=== PATIENT | female | born 1990 | race Caucasian/White ===

== ENCOUNTER 2016-12-09 09:59 | Emergency (ER) | payer OTHER ==
[~2016-12-09] VITALS: Ht 152.4 cm; Wt 77.7 kg
[~2016-12-09 09:59] MED LIST: DICY1TAB26 PO
[2016-12-09 10:00] VITALS: BP 130/68; PULSE 74; RESP 20; TEMP 98; O2SAT 99
--- NOTE | 2016-12-09 10:23 | PD ---
HPI Chief Complaint: GI Complaint Time Seen by Provider: 10:14 Travel History International Travel<30 days: No Contact w/Intl Traveler<30days: No Traveled to known affect area: No History of Present Illness HPI This is a 26-year-old female who presents to the emergency department with nausea and vomiting in the setting of early . Patient think she could be up to 15 weeks by dates. She did have an ultrasound at [facility] which demonstrated an intrauterine . She says that for the past 2 week she's been having trouble keeping anything down and she's been nauseous all day long. This morning is the first time she's been vomiting and she's vomited 6 times and she hasn't been able to eat or drink anything, constant, severe. She says she's lost 10 pounds since she became . She has some abdominal cramping but denies any severe pain. She is also constipated. PFSH Past Medical History Chest Pain: Yes Diminished Hearing: No Musculoskeletal: Yes (CHRONIC BACK PAIN) Immunizations Current: Yes ?: LMP: SEPTEMBER 21 2016 : 2 Para: 2 Ovarian Cysts: Yes Past Surgical History Abdominal Surgery: Yes Section: Yes (X2) Oral Surgery: Yes (WISDOM TEETH REMOVED) Social History Alcohol Use: Yes (RARE) Tobacco Use: No (QUIT 10/07/15) Substance Use: Yes (OCC MARIJ) Allergies-Medications (Allergen,Severity, Reaction): Coded Allergies: No Known Allergies (Verified , 10/21/15) Reported Meds & Prescriptions Reported Meds & Active Scripts Active No Active Prescriptions or Reported Medications Review of Systems Except as stated in HPI: all other systems reviewed are Neg Physical Exam Narrative GENERAL:Well appearing, no acute distress SKIN: Focused skin assessment warm and dry. HEAD: Atraumatic. Normocephalic. EYES: Pupils equal and round. No injection or drainage. ENT: Dry mucous membranes. NECK: Trachea midline. CARDIOVASCULAR: Regular rate and rhythm. No murmur appreciated. RESPIRATORY: Clear to auscultation. Breath sounds equal bilaterally. GASTROINTESTINAL: Abdomen soft, non-tender, nondistended. MUSCULOSKELETAL: No obvious deformities. NEUROLOGICAL: Awake and alert. No obvious cranial nerve deficits. Moving all extremities. PSYCHIATRIC: Appropriate mood and affect; insight and judgment normal. Data Data Last Documented VS Vital Signs Date Time Temp Pulse Resp B/P (MAP) Pulse Ox O2 Delivery O2 Flow Rate FiO2 12/09/16 10:00 98.0 74 20 130/68 (88) 99 Room Air Orders Orders Basic Metabolic Panel (Bmp) (12/09/16 10:20) Urinalysis - C+S If Indicated (12/09/16 10:20) Sodium Chlor 0.9% 1000 Ml Inj (Ns 1000 M (12/09/16 10:30) Ondansetron Inj (Zofran Inj) (12/09/16 10:30) Labs Laboratory Tests Test 12/09/16 10:30 Blood Urea Nitrogen 4 MG/DL Creatinine 0.62 MG/DL Random Glucose 100 MG/DL Calcium Level 8.8 MG/DL Sodium Level 137 MEQ/L Potassium Level 3.7 MEQ/L Chloride Level 106 MEQ/L Carbon Dioxide Level 23.0 MEQ/L Anion Gap 8 MEQ/L Estimat Glomerular Filtration Rate 115 ML/MIN MDM Medical Decision Making Medical Screen Exam Complete: Yes Emergency Medical Condition: Yes Interpretation(s) Afebrile, no tachycardia, normotensive Electrolytes are reassuring Differential Diagnosis Hyperemesis gravidarum, electrolyte abnormality, dehydration Narrative Course This is a 26-year-old female who presents to the emergency department with nausea and vomiting in the first trimester. She appears dry on exam. She is given a liter of IV fluid and IV Zofran. Electrolytes are reassuring. Patient feels somewhat better would like to go home. She was advised to return to the emergency department if her symptoms don't improve. She'll be discharged on Diclegis and Zofran as needed. Diagnosis Primary Impression: Hyperemesis gravidarum Patient Instructions: General Instructions Additional Instructions: If you develop severe or worsening abdominal pain, fever>100.4, persistent vomiting or inability to eat or drink return to the emergency department immediately. Follow-up with your senior marketing manager as an outpatient. Med/Other Pt SpecificInfo: Prescription(s) given Scripts Doxylamine-Pyridoxine (Diclegis) 10-10 Mg Tab 1 TAB PO DIRECTED, #20 Take 2 tablets at bed time on day 1 and day 2. If your symptoms are persisting take one tablet in the morning and 2 tablets at bedtime on day 3. If your symptoms are persistent increase to 1 tablet in the morning, 1 tablet in the afternoon and 2 tablets at bed time on day 4. Prov: Paulina García MD 12/09/16 Disposition: 01 DISCHARGE HOME Condition: Stable Paulina García MD Dec 09, 2016 10:23
[2016-12-09] MEDS ORDERED: SODIUM CHLOR 0.9% 1000 ML INJ 1,000 ML IV ONE (10:30)
[2016-12-09] MEDS ORDERED: ONDANSETRON HCL 4 MG/2 ML VIAL IV PUSH ONE (10:30)
[2016-12-09 11:14] LABS: POTASSIUM 3.7 MEQ/L (3.5-5.1)
[2016-12-09] MEDS ORDERED: DOXY10TA PO (11:31)
[2016-12-09] MEDS ORDERED: ZOFR4TAB3 SL (11:32)
== END 2016-12-09 12:08 | disposition home or self-care (01) ==
LOC: NEPD 09:59
DX: O21.0 Mild hyperemesis gravidarum (principal); R10.9 Unspecified abdominal pain
CPT/HCPCS: 80048; 96361; 96374; 99284; J2405; J7030

== ENCOUNTER 2017-07-15 08:20 | Inpatient (IN) | payer MEDICAID ==
[~2017-07-15] VITALS: Ht 152.4 cm; Wt 98.0 kg
[~2017-07-15 08:20] MED LIST changes: -DICY1TAB26 PO; +DOXY10TA PO; +ZOFR4TAB3 SL
[2017-07-15 09:37] LABS: AUTOMATED NEUTROPHIL # 6.8 TH/MM3 (1.8-7.7); BASOPHIL % 0.1 % (0.0-2.0); EOSINOPHIL # 0.1 TH/MM3 (0-0.4); EOSINOPHIL % 0.5 % (0.0-4.0); HEMATOCRIT 32.6 % (35.0-46.0); HEMOGLOBIN 11.3 GM/DL (11.6-15.3); LYMPH % 22.3 % (9.0-44.0); LYMPHOCYTE # 2.1 TH/MM3 (1.0-4.8); MEAN CELL VOLUME 92.8 FL (80.0-100.0); MEAN CORPUSCULAR HEMOGLOBIN 32.3 PG (27.0-34.0); MEAN CORPUSCULAR HGB CONC 34.8 % (32.0-36.0); MEAN PLATELET VOLUME 8.8 FL (7.0-11.0); MONOCYTE # 0.5 TH/MM3 (0-0.9); NEUT % 72.1 % (16.0-70.0); PLATELET COUNT 223 TH/MM3 (150-450); RED BLOOD COUNT 3.51 MIL/MM3 (4.00-5.30); RED CELL DISTRIBUTION WIDTH 13.8 % (11.6-17.2); WHITE BLOOD COUNT 9.4 TH/MM3 (4.0-11.0)
[2017-07-15] MEDS ORDERED: LACTATED RINGER'S 1000 ML INJ 1,000 ML IV ONE ×2 (09:38→12:00)
[2017-07-15 09:43] LABS: BACTERIA, URINE RARE /hpf; BILIRUBIN, URINE NEG (NEG); BLOOD, URINE NEG (NEG); GLUCOSE,URINE NEG (NEG); HYALINE CAST, URINE 2 /lpf (RARE); KETONE, URINE NEG (NEG); MUCUS URINE FEW /lpf (OCC); NITRITE,URINE NEG (NEG); PH, URINE 6.5 (5.0-8.5); SQUAMOUS EPITHELIAL CELL URINE 1 /hpf (0-5); URINE COLOR YELLOW (YELLW/STRAW); URINE LEUKOCYTE ESTERASE NEG (NEG)
--- NOTE | 2017-07-15 09:54 | HHI.HP ---
HPI Travel History International Travel<30 Days: No Contact w/Intl Traveler<30Days: No Known Affected Area: No History of Present Illness HPI This is a 26-year-old 002 at 39/1 weeks present to the OB floor for scheduled repeat . She is a patient of Melonie Hampton. She has had 2 prior C-sections. She reports contractions every 10 minutes, irregular. Endorses good movement. She denies leakage of fluid, vaginal bleeding, vaginal discharge, fevers, chest pain and shortness of breath. No other complaints. History Past Medical History Medical History: Denies Significant Hx Obstetric History Obstetric History 2 prior C-sections Past Surgical History Narrative Surgical Family History Family History: Negative Social History Alcohol Use: No Tobacco Use: No Substance Abuse: No Allergies-Medications (Allergen,Severity, Reaction): Coded Allergies: No Known Allergies (Verified Allergy, Unknown, 07/15/17) Home Meds Active Scripts Ondansetron Odt (Zofran Odt) 4 Mg Tab, 4 MG SL Q6HR Y for Nausea/Vomiting, #15 TAB 0 Refills Prov:Paulina García MD 12/09/16 Doxylamine-Pyridoxine (Diclegis) 10-10 Mg Tab, 1 TAB PO DIRECTED, #20 Take 2 tablets at bed time on day 1 and day 2. If your symptoms are persisting take one tablet in the morning and 2 tablets at bedtime on day 3. If your symptoms are persistent increase to 1 tablet in the morning, 1 tablet in the afternoon and 2 tablets at bed time on day 4. Prov:Paulina García MD 12/09/16 Review of Systems Except as stated in HPI: all other systems reviewed are Neg Physical Exam Narrative GENERAL: Well-nourished, well-developed patient. SKIN: Warm and dry. HEAD: Normocephalic and atraumatic. EYES: No scleral icterus. No injection or drainage. ENT: No nasal drainage noted. Mucous membranes pink. Airway patent. NECK: Supple, trachea midline. No JVD. CARDIOVASCULAR: Regular rate and rhythm without murmurs, gallops, or rubs. RESPIRATORY: Breath sounds equal bilaterally. No accessory muscle use. ABDOMEN/GI: Abdomen soft, non-tender, bowel sounds present, no rebound, no guarding FHT's: Category: 1 Baseline: 130 Reactive: yes Variability: moderate Decels: none EXTREMITIES: No cyanosis or edema. BACK: Nontender without obvious deformity. NEUROLOGICAL: Awake and alert. Motor and sensory grossly within normal limits. Five out of 5 muscle strength in all muscle groups. Normal speech. Caprini VTE Risk Assessment Caprini VTE Risk Assessment: No/Low Risk (score <= 1) Caprini Risk Assessment Model Point Value = 1 Point Value = 2 Point Value = 3 Point Value = 5 Age 41-60 Minor surgery BMI > 25 kg/m2 Swollen legs Varicose veins or History of unexplained or recurrent spontaneous Oral contraceptives or hormone replacement Sepsis (< 1 month) Serious lung disease, including pneumonia (< 1 month) Abnormal pulmonary function Acute myocardial infarction Congestive heart failure (< 1 month) History of inflammatory bowel disease Medical patient at bed rest Age 61-74 Arthroscopic surgery Major open surgery (> 45 min) Laparoscopic surgery (> 45 min) Malignancy Confined to bed (> 72 hours) Immobilizing plaster cast Central venous access Age >= 75 History of VTE Family history of VTE Factor V Leiden Prothrombin [id number] Lupus anticoagulant Anticardiolipin antibodies Elevated serum homocysteine Heparin-induced thrombocytopenia Other congenital or acquired thrombophilia Stroke (< 1 month) Elective arthroplasty Hip, pelvis, or leg fracture Acute spinal cord injury (< 1 month) Prophylaxis Regimen Total Risk Factor Score Risk Level Prophylaxis Regimen 0-1 Low Early ambulation 2 Moderate Order ONE of the following: *Sequential Compression Device (SCD) *Heparin 5000 units SQ BID 3-4 Higher Order ONE of the following medications: *Heparin 5000 units SQ TID *Enoxaparin/Lovenox 40 mg SQ daily (WT < 150 kg, CrCl > 30 mL/min) *Enoxaparin/Lovenox 30 mg SQ daily (WT < 150 kg, CrCl > 10-29 mL/min) *Enoxaparin/Lovenox 30 mg SQ BID (WT < 150 kg, CrCl > 30 mL/min) AND/OR *Sequential Compression Device (SCD) 5 or more Highest Order ONE of the following medications: *Heparin 5000 units SQ TID (Preferred with Epidurals) *Enoxaparin/Lovenox 40 mg SQ daily (WT < 150 kg, CrCl > 30 mL/min) *Enoxaparin/Lovenox 30 mg SQ daily (WT < 150 kg, CrCl > 10-29 mL/min) *Enoxaparin/Lovenox 30 mg SQ BID (WT < 150 kg, CrCl > 30 mL/min) AND *Sequential Compression Device (SCD) Data Data Vital Signs Reviewed: Yes Orders Orders Type And Screen (07/15/17 09:12) Complete Blood Count With Diff (07/15/17 09:12) Urinalysis - C+S If Indicated (07/15/17 09:12) Drug Screen, Random Urine (07/15/17 09:12) Specimen To Be Collected PRN (07/15/17 09:12) Specimen To Be Collected PRN (07/15/17 09:12) Admit To Inpatient (07/15/17 ) Code Status (07/15/17 09:38) Vital Signs (Adult) .ON ADMISSION (07/15/17 09:38) Activity Oob Ad Marian (07/15/17 09:38) Heart (07/15/17 09:38) Urinary Catheter Management MIGUEL.Q8H (07/15/17 09:38) ^ Preps (07/15/17 09:38) Scd / Farzad / Foot Pump MIGUEL.QSHIFT (07/15/17 09:38) ^ Ultrasound For Locatio (07/15/17 09:38) Diet Npo (07/15/17 Breakfast) Lactated Ringer's 1000 Ml Inj (Lr 1000 M (07/15/17 09:38) Lactated Ringer's 1000 Ml Inj (Lr 1000 M (07/15/17 10:08) Citric Acid-Sodium Citrate Liq (Bicitra (07/15/17 11:15) Complete Blood Count With Diff (07/15/17 09:38) Urinalysis - C+S If Indicated (07/15/17 09:38) Drug Screen, Random Urine (07/15/17 09:38) Inpatient Certification (07/15/17 ) Specimen To Be Collected PRN (07/15/17 09:38) Specimen To Be Collected PRN (07/15/17 09:38) Cefazolin 2 Gm Premix (Ancef 2 Gm Premix (07/15/17 10:45) Cefazolin Inj (Ancef Inj) (07/15/17 10:45) Group B Strep: Negative Labs Laboratory Tests Test 07/15/17 08:35 07/15/17 08:45 Urine Color YELLOW Urine Turbidity CLEAR Urine pH 6.5 Urine Specific [place] 1.020 Urine Protein TRACE Urine Glucose (UA) NEG Urine Ketones NEG Urine Occult Blood NEG Urine Nitrite NEG Urine Bilirubin NEG Urine Urobilinogen 2.0 Urine Leukocyte Esterase NEG Urine RBC 1 Urine WBC 1 Urine Squamous Epithelial Cells 1 Urine Bacteria RARE Urine Hyaline Casts 2 Urine Mucus FEW Microscopic Urinalysis Comment CULT NOT INDICATED White Blood Count 9.4 Red Blood Count 3.51 Hemoglobin 11.3 Hematocrit 32.6 Mean Corpuscular Volume 92.8 Mean Corpuscular Hemoglobin 32.3 Mean Corpuscular Hemoglobin Concent 34.8 Red Cell Distribution Width 13.8 Platelet Count 223 Mean Platelet Volume 8.8 Neutrophils (%) (Auto) 72.1 Lymphocytes (%) (Auto) 22.3 Monocytes (%) (Auto) 5.0 Eosinophils (%) (Auto) 0.5 Basophils (%) (Auto) 0.1 Neutrophils # (Auto) 6.8 Lymphocytes # (Auto) 2.1 Monocytes # (Auto) 0.5 Eosinophils # (Auto) 0.1 Basophils # (Auto) 0.0 CBC Comment DIFF FINAL Differential Comment Assessment/Plan Assessment and Plan 26-year-old female at 39/1 weeks resents for a scheduled repeat C- section. -Intrauterine , category 1, reassuring -GBS negative -Admit to L & D sdw Jesica Ibrahim MD R1 Jul 15, 2017 09:54
[2017-07-15] MEDS ORDERED: LACTATED RINGER'S 1000 ML INJ 1,000 ML IV SCH (10:08)
[2017-07-15] MEDS ORDERED: MORPHINE SULFATE PF 5 MG/10 ML VIAL ONE (10:43)
[2017-07-15] MEDS ORDERED: ceFAZolin 2 GM PREMIX 50 ML IV SCH (10:45)
[2017-07-15] MEDS ORDERED: CITRIC ACID-SODIUM CITRATE LIQ 30 ML UDC PO SCH (11:15)
[2017-07-15] MEDS ORDERED: FUROSEMIDE 40 MG/4 ML VIAL ONE (11:42)
[2017-07-15] MEDS ORDERED: OXYTOCIN 10 UNIT/ML AMP IV ONE (12:00)
[2017-07-15] MEDS ORDERED: PROPOFOL 200 MG/20 ML AMP IV ONE (12:00)
[2017-07-15] MEDS ORDERED: DEXAMETHASONE SOD PHOS 4 MG/ML VIAL IV ONE (12:00)
[2017-07-15] MEDS ORDERED: ePHEDrine/NS 25 MG/5 ML SYRINGE IV ONE (12:00)
[2017-07-15] MEDS ORDERED: ceFAZolin INJ 1,000 MG VIAL IV ONE (12:00)
[2017-07-15] MEDS ORDERED: ONDANSETRON HCL 4 MG/2 ML VIAL IV ONE (12:00)
[2017-07-15] MEDS ORDERED: KETOROLAC TROMETHAMINE 30 MG/ML (IVP) VIAL IV PUSH ONE (12:00)
--- NOTE | 2017-07-15 12:12 | PD.OB.DELI ---
Procedure Note Section Procedure Pre Op Diagnosis: (1) History of delivery affecting (2) 39 weeks gestation of Post Op Diagnosis: (1) History of delivery affecting (2) 39 weeks gestation of Performed by Demond Gonzalez Procedure: Repeat Low Transverse Sec Indication for delivery: Desired elective repeat Informed consent obtained: For procedure Confirmed correct: Time-out taken Anesthesia: Spinal Medication prior to procedure: As documented in eMAR Monitoring during procedure: Blood pressure monitoring, groundwater monitoring technician, Pulse oximetry Urinary catheter: Inserted using sterile technique Sterile preparation: In usual fashion, With 2% chlorexidine (Hibiclens) Position: Supine with wedge to left side Operative Features Skin Incision: Pfannenstiel Uterine Incision: Low transverse w/knife / blunt ext Membranes Ruptured: Artificially Presentation: Occiput posterior Delivery date: Jul 15, 2017 Delivery time: 11:18 Delivery of infant: Uneventful : Male One Minute : 9 Five Minute : 9 Weight: 3630 Status of : Viable Placenta delivered: Intact Medications: Antibiotics, Oxytocin Estimated blood loss: 650cc Procedure tolerated: Well Maternal Condition: Stable Condition: Stable Procedure in detail see dictated op-report Demond Gonzalez Jr., MD Jul 15, 2017 12:12
[2017-07-15] MEDS ORDERED: SODIUM CHLORIDE 0.9% FLUSH 10 ML FLUSH IV FLUSH PRN (12:15)
[2017-07-15] MEDS ORDERED: OXYTOCIN 30 UNITS-500ML PREMIX 500 ML IV ONE (12:15)
[2017-07-15] MEDS ORDERED: SIMETHICONE 80 MG CHEWABLE TAB PO PRN (12:15)
[2017-07-15] MEDS ORDERED: oxyCODONE/ACETAMINOPHEN 5 MG/325 MG TAB PO PRN (12:15)
[2017-07-15] MEDS ORDERED: ZOLPIDEM TARTRATE 5 MG TAB PO PRN (12:15)
[2017-07-15] MEDS ORDERED: ONDANSETRON HCL 4 MG/2 ML VIAL ONE (12:24)
[2017-07-15] MEDS: ONDANSETRON HCL 4 MG/2 ML VIAL IV PUSH PRN ×2 (12:25→18:12)
[2017-07-15] MEDS ORDERED: KETOROLAC TROMETHAMINE 60 MG/2 ML (IM) VIAL IM PRN (13:00)
--- NOTE | 2017-07-15 13:00 | MP ---
cc: Demond Barrera MD DATE OF OPERATION: PREOPERATIVE DIAGNOSES: Intrauterine at 39 and 1/7 weeks, history of prior delivery. POSTOPERATIVE DIAGNOSES: Intrauterine at 39 and 1/7 weeks, history of prior delivery. PROCEDURE: Repeat low transverse delivery via Pfannenstiel skin incision. SURGEON: Demond Gonzalez MD DOG HANDLER: Staff. ANESTHESIA: Spinal anesthesia with Duramorph. ESTIMATED BLOOD LOSS: 650 mL URINE OUTPUT: Clear urine throughout the procedure. COMPLICATIONS: None. FINDINGS: A viable male in occiput posterior position, cephalic with scores of 9 at 1 minute and 9 at 5 minutes. Weight was 3630 grams. Normal tubes and ovaries at the time of the procedure. INDICATIONS FOR PROCEDURE: This is a 26-year-old now G3, P3-0-0-3, presented to labor and delivery for repeat section. delivery was discussed with the patient. Risks, benefits, alternatives were discussed with the patient. The patient showed understanding and signed the consent without coercion. PROCEDURE: The patient was taken to the operating room with IV fluids running. Spinal anesthesia with Duramorph was applied and found to be adequate. She was prepped and draped in dorsal supine position with a leftward tilt. The patient was identified as Arfica thrift. Pfannenstiel skin incision was performed and carried down to the underlying layer of fascia with the Bovie. The fascia was incised in the midline and extended laterally. Gris clamps were used to grasp superior aspect of the fascial incision and the underlying rectus muscles were dissected sharply. The parietal peritoneum was identified and entered sharply. This incision was extended superiorly and inferiorly with good visualization of the bladder. The bladder blade was inserted and the lower uterine segment was incised in a transverse manner and extended bluntly. The 's head was noted to be quite large and was brought through the uterine incision and was delivered without difficulty or trauma. The rest of the was delivered without difficulty or trauma. The cord was then delayed, clamped and cut. Infant was handed to the waiting resuscitation team. Cord bloods were obtained. The placenta was then delivered intact without difficulty. Uterus was then exteriorized and cleared of all clots and debris. Uterine incision was reapproximated with a 0 Vicryl in a running fashion. A second 0 Vicryl was used to perform an imbricating layer and it was noted that the bladder flap was very proximal to the uterine incision and this imbricating layer was created with some difficulty. Excellent hemostasis was noted. The uterus was returned to the pelvis. The abdomen and pelvis were then copiously irrigated with normal saline. Uterine incision again was noted to be hemostatic. A piece of Interceed was placed across the uterine incision. The parietal peritoneum was then reapproximated with 2-0 plain gut suture in multiple interrupted fashion. Subfascial tissues were noted to be hemostatic, and the rectus fascia was reapproximated with 0 PDS suture in a running fashion. Subcutaneous tissues were noted to be hemostatic and the Shea's fascia was reapproximated with 2-0 plain gut suture in a running fashion. The edges of the incision were noted to roll with tamiko and the skin incision was closed with a 4-0 Vicryl in a subcuticular fashion. Sponge, lap and needle counts were correct x 2. The patient received 2 grams of Ancef prior to procedure. Transferred to PACU in stable condition. MD ANDRAE Foy Jr/TL , 12:17 PM , 12:58 PM
[2017-07-15 13:45] VITALS: BP 122/77; PULSE 90; RESP 18; TEMP 97.5
[2017-07-15] MEDS ORDERED: EPIDURAL-DIPHENHYDRAMINE HCL 50 MG/ML VIAL IV PUSH PRN ×2 (14:15→19:45)
[2017-07-15] MEDS ORDERED: EPIDURAL-DIPHENHYDRAMINE HCL 50 MG CAP PO PRN ×2 (14:15→19:45)
[2017-07-15] MEDS ORDERED: EPIDURAL-DO NOT ADMINISTER ANTICOAGULANTS PRN ×2 (14:15→19:45)
[2017-07-15] MEDS ORDERED: EPIDURAL-NALOXONE HCL 0.4 MG/ML AMP IV PUSH PRN ×2 (14:15→19:45)
[2017-07-15] MEDS ORDERED: EPIDURAL-NO SYSTEMIC NARCOTICS PRN ×2 (14:15→19:45)
[2017-07-15] MEDS ORDERED: OXYTOCIN 30 UNITS-500ML PREMIX 500 ML IV PRN (17:15)
[2017-07-15 20:00] VITALS: BP 115/79; PULSE 67; RESP 18; TEMP 98.3
[2017-07-15] MEDS ORDERED: SODIUM CHLORIDE 0.9% FLUSH 10 ML FLUSH IV FLUSH SCH (21:00)
[2017-07-15] MEDS: LACTATED RINGER'S 1000 ML INJ 1,000 ML IV SCH (22:30)
[2017-07-16] VITALS: BP 115/72; PULSE 68; RESP 18; TEMP 98.3
[2017-07-16] MEDS: ONDANSETRON HCL 4 MG/2 ML VIAL IV PUSH PRN (01:03)
[2017-07-16 04:00] VITALS: BP 110/76; PULSE 60; RESP 18; TEMP 98.4
[2017-07-16] MEDS: LACTATED RINGER'S 1000 ML INJ 1,000 ML IV SCH (04:30)
[2017-07-16 05:22] LABS: AUTOMATED NEUTROPHIL # 10.5 TH/MM3 (1.8-7.7); BASOPHIL % 0.1 % (0.0-2.0); EOSINOPHIL % 0.2 % (0.0-4.0); HEMATOCRIT 28.7 % (35.0-46.0); HEMOGLOBIN 9.9 GM/DL (11.6-15.3); LYMPH % 17.3 % (9.0-44.0); LYMPHOCYTE # 2.3 TH/MM3 (1.0-4.8); MEAN CELL VOLUME 92.8 FL (80.0-100.0); MEAN CORPUSCULAR HEMOGLOBIN 31.9 PG (27.0-34.0); MEAN CORPUSCULAR HGB CONC 34.4 % (32.0-36.0); MEAN PLATELET VOLUME 8.6 FL (7.0-11.0); MONO % 5.1 % (0.0-8.0); MONOCYTE # 0.7 TH/MM3 (0-0.9); NEUT % 77.3 % (16.0-70.0); PLATELET COUNT 217 TH/MM3 (150-450); RED CELL DISTRIBUTION WIDTH 13.8 % (11.6-17.2); WHITE BLOOD COUNT 13.6 TH/MM3 (4.0-11.0)
--- NOTE | 2017-07-16 08:34 | HHI.OB ---
Subjective Remarks 26 year old female s/p repeat C/S at 39 wks gestation, POD1. AFVSS. Patient reports she is feeling well. Bleeding is decreasing and pain is well- controlled. She is breast feeding and bonding well with baby. Ambulating without difficulties. She is tolerating a diet without nausea or vomiting. She has not had a bowel movement. She has passed gas. Denies chest pain, dysuria, shortness of breath, or calf pain. Objective Vitals/I&O Vital Signs Date Time Temp Pulse Resp B/P (MAP) Pulse Ox O2 Delivery O2 Flow Rate FiO2 07/16/17 04:00 110/76 (87) 07/16/17 04:00 98.4 60 18 07/16/17 00:00 98.3 68 18 115/72 (86) 07/15/17 20:00 98.3 67 18 115/79 (91) Result Diagram: 07/16/17 0455 Objective Remarks GENERAL: Well-nourished, well-developed patient. CARDIOVASCULAR: Regular rate and rhythm without murmurs, gallops, or rubs. RESPIRATORY: Breath sounds equal bilaterally. No accessory muscle use. ABDOMEN/GI: Abdomen soft, non-tender, bowel sounds present. Incision:covered with bandage Fundus: Firm, non-tender at umbilicus. GENITOURINARY: Light to moderate bleeding. EXTREMITIES: No cyanosis or edema, non-tender, without signs of DVT. Medications and IVs Current Medications Medications (Trade) Dose Ordered Sig/Kalani Route Start Time Stop Time Status Last Admin Lactated Ringer's 1,000 ml @ 150 mls/hr Q6H40M IV 07/15/17 10:08 07/15/17 10:13 (Bicitra Liq) 30 ml CLERK OPERATOR PO 07/15/17 11:15 07/19/17 11:14 07/15/17 10:21 Cefazolin Sodium/ Dextrose 50 ml @ 100 mls/hr CLERK OPERATOR IV 07/15/17 10:45 07/19/17 10:44 Lactated Ringer's 1,000 ml @ 100 mls/hr Q10H IV 07/15/17 17:06 07/16/17 13:05 07/16/17 04:30 Oxytocin 500 ml @ 100 mls/hr UNSCH X1 PRN IV 07/15/17 17:15 07/16/17 17:14 (NS Flush) 2 ml BID IV FLUSH 07/15/17 21:00 (NS Flush) 2 ml UNSCH PRN IV FLUSH 07/15/17 12:15 (Mylicon Chew) 80 mg QID PRN PO 07/15/17 12:15 (Toradol Inj) 30 mg Q6H PRN IM 07/15/17 13:00 07/16/17 12:59 07/16/17 05:22 (Percocet 5-325 Mg) 1 tab Q4H PRN PO 07/15/17 12:15 (Percocet 5-325 Mg) 2 tab Q4H PRN PO 07/15/17 12:15 (Jessica-Colace) 2 tab Q12H PRN PO 07/15/17 12:15 (Ambien) 5 mg HS PRN PO 07/15/17 12:15 (M-M-R Ii Inj) 0.5 ml ONCE ONCE SQ 07/16/17 16:00 07/16/17 16:01 (Boostrix Inj) 0.5 ml ONCE ONCE IM 07/16/17 16:00 07/16/17 16:01 (Zofran Inj) 4 mg Q6H PRN IV PUSH 07/15/17 12:15 07/16/17 01:03 Miscellaneous Information NO SYSTEMIC NARCOTICS TO BE GIVEN FO... UNSCH PRN .XX 07/15/17 14:15 07/16/17 14:14 (Narcan Inj) 0.4 mg UNSCH PRN IV PUSH 07/15/17 14:15 07/16/17 14:14 (Benadryl Inj) 25 mg Q6H PRN IV PUSH 07/15/17 14:15 07/16/17 14:14 (Benadryl) 50 mg Q6H PRN PO 07/15/17 14:15 07/16/17 14:14 Miscellaneous Information ALL NURSING DEPARTMENTS UNSCH PRN .XX 07/15/17 14:15 07/16/17 14:14 Assessment/Plan Assessment and Plan 26 yo female s/p repeat C/S , POD 1 - AFVSS - Continue routine care - Motrin and Percocet PRN pain - Encourage OOB - Pelvic rest x 6 wks. Will need 1 week incision check. - Contraception: Nexplanon, will discuss with OB provider - Anticipate D/C 1-2 days Jesica Farmer MD R1 Jul 16, 2017 08:34
[2017-07-16] MEDS: oxyCODONE/ACETAMINOPHEN 5 MG/325 MG TAB PO PRN ×2 (13:36→20:41)
[2017-07-16] MEDS ORDERED: DIPHTH/TETANUS/ACEL PERTUSSIS (BOOSTER) 0.5 ML VIAL/PFS IM ONE (16:00)
[2017-07-16] MEDS ORDERED: MEASLES, MUMPS, RUBELLA VACCINE 0.5 ML VIAL SQ ONE (16:00)
[2017-07-16 20:00] VITALS: BP 120/76; PULSE 70; RESP 18; TEMP 98.3
[2017-07-16] MEDS: DOCUSATE SODIUM 50 MG/SENNA 8.6 MG TAB PO PRN (20:41)
[2017-07-16] MEDS: IBUPROFEN 800 MG TAB PO PRN (21:07)
[2017-07-17] MEDS: IBUPROFEN 800 MG TAB PO PRN ×2 (04:26→10:35)
[2017-07-17] MEDS: oxyCODONE/ACETAMINOPHEN 5 MG/325 MG TAB PO PRN ×2 (04:27→10:37)
[2017-07-17 08:00] VITALS: BP 115/66; PULSE 70; RESP 20; TEMP 98.2; O2SAT 98
--- NOTE | 2017-07-17 08:25 | HHI.OB ---
Subjective Post Operative Day: 2 Remarks Pt seen and examined this morning. Postoperative day # 2 AFVSS overnight. Incision not draining. Decreased lochia. Denies dysuria. No breast tenderness. She is feeding the baby via breast. Appetite good. No nausea or vomiting. Patient has not yet had a bowel movement, but does endorse bowel gas. Ambulating well. Denies calf pain or shortness of breath. Otherwise, she is doing well this morning and has no other concerns. Objective Vitals/I&O Vital Signs Date Time Temp Pulse Resp B/P (MAP) Pulse Ox O2 Delivery O2 Flow Rate FiO2 07/17/17 08:00 115/66 (82) 07/17/17 08:00 98.2 70 20 98 07/16/17 20:00 98.3 70 18 120/76 (91) Result Diagram: 07/16/17 0455 Objective Remarks GENERAL: Well-nourished, well-developed patient. CARDIOVASCULAR: Regular rate and rhythm without murmurs, gallops, or rubs. RESPIRATORY: Breath sounds equal bilaterally. No accessory muscle use. ABDOMEN/GI: Abdomen soft, non-tender, bowel sounds present. Incision:covered with bandage Fundus: Firm, non-tender at umbilicus. GENITOURINARY: Light to moderate bleeding. EXTREMITIES: No cyanosis or edema, non-tender, without signs of DVT. Medications and IVs Current Medications Medications (Trade) Dose Ordered Sig/Kalani Route Start Time Stop Time Status Last Admin Lactated Ringer's 1,000 ml @ 150 mls/hr Q6H40M IV 07/15/17 10:08 07/15/17 10:13 (Bicitra Liq) 30 ml COVERAGE SPECIALIST PO 07/15/17 11:15 07/19/17 11:14 07/15/17 10:21 Cefazolin Sodium/ Dextrose 50 ml @ 100 mls/hr COVERAGE SPECIALIST IV 07/15/17 10:45 07/19/17 10:44 (NS Flush) 2 ml BID IV FLUSH 07/15/17 21:00 (NS Flush) 2 ml UNSCH PRN IV FLUSH 07/15/17 12:15 (Mylicon Chew) 80 mg QID PRN PO 07/15/17 12:15 (Percocet 5-325 Mg) 1 tab Q4H PRN PO 07/15/17 12:15 (Percocet 5-325 Mg) 2 tab Q4H PRN PO 07/15/17 12:15 07/17/17 04:27 (Jessica-Colace) 2 tab Q12H PRN PO 07/15/17 12:15 07/16/17 20:41 (Ambien) 5 mg HS PRN PO 07/15/17 12:15 (Zofran Inj) 4 mg Q6H PRN IV PUSH 07/15/17 12:15 07/16/17 01:03 (Motrin) 800 mg Q6H PRN PO 07/16/17 21:00 07/17/17 04:26 Assessment/Plan Assessment and Plan 26 yo female s/p repeat C/S , POD 2 - AFVSS - Continue routine care - Motrin and Percocet PRN pain - Encourage OOB - Pelvic rest x 6 wks. Will need 1 week incision check. - Contraception: Nexplanon, will discuss with OB provider - Discharge pending clearance for baby by Pediatric team DW: Dr. Matos Discharge Planning Today pending clearance for baby Darren Melara MD R2 Jul 17, 2017 08:24
[2017-07-17] MEDS ORDERED: PERI PO (09:42)
[2017-07-17] MEDS ORDERED: IBUP1TAB7 PO (09:42)
[2017-07-17] MEDS ORDERED: OXYC1TAB63 PO ×2 (09:42→10:00)
--- NOTE | 2017-07-17 09:42 | HHI.DCPOC ---
Discharge Care Plan Diagnosis: (1) Single delivery by section Report Symptoms to Your Doctor -Temperature above 100.5 degrees -Redness, of incision or excessive or foul smelling drainage -Unusual pain or calf pain -Increased vaginal bleeding -Painful or difficulty urinating -Feelings of extreme sadness or anxiety after 2 weeks Goals to Promote Your Health * To prevent worsening of your condition and complications * To maintain your health at the optimal level Directions to Meet Your Goals Take your medications as prescribed Follow your dietary instruction Follow activity as directed Ensure plenty of rest for recovery Drink fluids for hydration Keep your appointments as scheduled Take your immunizations and boosters as scheduled If your symptoms worsen call your PCP, if no PCP go to Urgent Care Center or Emergency Room Smoking is Dangerous to Your Health. Avoid second hand smoke Call the 24-hour crisis hotline for domestic abuse at Darren Melara MD R2 Jul 17, 2017 09:42
[2017-07-17] MEDS: DOCUSATE SODIUM 50 MG/SENNA 8.6 MG TAB PO PRN (10:35)
== END 2017-07-17 13:56 | disposition home or self-care (01) | DRG 766 ==
LOC: H2EB 08:20 → H1EA 13:28
PROVIDERS: ADMIT Obstetrics & Gynecology; ATTEND Obstetrics & Gynecology
PROC: 10D00Z1 Extraction of Products of Conception, Low, Open Approach (ICD-10-PCS; principal; 2017-07-15)
DX: O34.211 Maternal care for low transverse scar from previous cesarean delivery (principal); Z37.0 Single live birth; Z3A.39 39 weeks gestation of pregnancy
CPT/HCPCS: 59025; 80307; 81001; 85025; 86850; 86900; 86901; 90715; C1765; J0690; J1100; J1885; J1940; J2274; J2405; J2590; J3010; J7120

== ENCOUNTER 2017-07-24 13:17 | Emergency (ER) | payer MEDICAID ==
[~2017-07-24] VITALS: Ht 152.4 cm; Wt 92.0 kg
[~2017-07-24 13:17] MED LIST changes: +IBUP1TAB7 PO; +OXYC1TAB63 PO; +PERI PO
[2017-07-24 13:32] VITALS: BP 151/73; PULSE 57; RESP 18; TEMP 97.9; O2SAT 99
--- NOTE | 2017-07-24 14:02 | PD ---
HPI Chief Complaint: Skin Problem Time Seen by Provider: 13:47 Travel History International Travel<30 days: No Contact w/Intl Traveler<30days: No Traveled to known affect area: No History of Present Illness HPI Examined in the presence of a female nurse. 26-year-old female presents for wound check. She had a performed in July 15. She reports that the wound appears to be opening on the left side. She noticed this yesterday. She reports that there is some drainage from the wound. She has had some soreness since the surgery which is worse with palpation. Denies any fevers, chills. She was seen 2 days ago by her deicer finisher for wound check. No other complaints. PFSH Past Medical History Chest Pain: Yes Diminished Hearing: No Musculoskeletal: Yes (CHRONIC BACK PAIN) Immunizations Current: Yes ?: Not : 2 Para: 2 Ovarian Cysts: Yes Past Surgical History Abdominal Surgery: Yes Section: Yes (X2) Oral Surgery: Yes (WISDOM TEETH REMOVED) Social History Alcohol Use: No Tobacco Use: No Substance Use: Yes (OCC MARIJ) Allergies-Medications (Allergen,Severity, Reaction): Coded Allergies: No Known Allergies (Verified Allergy, Unknown, 07/24/17) Reported Meds & Prescriptions Reported Meds & Active Scripts Active Oxycodone-Acetaminophen 5-325 (Oxycodone HCl/Acetaminophen) 5 Mg-325 Mg Tablet 1 Tab PO Q4H PRN . Gnp Senna Plus 8.6-50 mg (Sennosides-Docusate Sodium) 8.6 Mg-50 Mg Tab 2 Tab PO Q12H PRN Ibuprofen 800 Mg Tab 800 Mg PO Q6H PRN Zofran Odt (Ondansetron Odt) 4 Mg Tab 4 Mg SL Q6HR PRN Diclegis (Doxylamine-Pyridoxine) 10-10 Mg Tab 1 Tab PO DIRECTED Take 2 tablets at bed time on day 1 and day 2. If your symptoms are persisting take one tablet in the morning and 2 tablets at bedtime on day 3. If your symptoms are persistent increase to 1 tablet in the morning, 1 tablet in the afternoon and 2 tablets at bed time on day 4. Review of Systems Except as stated in HPI: all other systems reviewed are Neg Physical Exam Narrative GENERAL: Well-developed well-nourished female no acute distress SKIN: Warm and dry. Examination of the suprapubic region reveals a horizontal incision. There is slight dehiscence on the left side. There is no purulent drainage. There is no erythema or induration of the skin. GASTROINTESTINAL: Abdomen soft, mild suprapubic tenderness without guarding. Data Data Last Documented VS Vital Signs Date Time Temp Pulse Resp B/P (MAP) Pulse Ox O2 Delivery O2 Flow Rate FiO2 07/24/17 13:32 97.9 57 18 151/73 (99) 99 MDM Medical Decision Making Medical Screen Exam Complete: Yes Emergency Medical Condition: Yes Medical Record Reviewed: Yes Differential Diagnosis Wound dehiscence, cellulitis, abscess, seroma, endometritis Narrative Course The patient appears to have slight wound dehiscence on left side of her C- section incision with no evidence of infectious process. Steri-Strips will be placed. The patient is stable for discharge. Diagnosis Primary Impression: Wound dehiscence Additional Instructions: Keep the wound clean and dry until Steri-Strips fall off. Follow-up with your SOCIAL WORK PROFESSOR as needed. Return for any acutely new or worsening symptoms. Med/Other Pt SpecificInfo: Wound Care Disposition: DISCHARGE HOME Condition: Stable Humberto Rolle July 24, 2017 14:02
== END 2017-07-24 14:19 | disposition home or self-care (01) ==
LOC: NEPD 13:17
DX: O90.0 Disruption of cesarean delivery wound (principal); O90.89 Other complications of the puerperium, not elsewhere classified; G89.29 Other chronic pain; M54.9 Dorsalgia, unspecified
CPT/HCPCS: 99281